=== PATIENT | female | born 1980 | race American Indian/Alaskan Native ===

== ENCOUNTER 2017-12-14 16:47 | Emergency (ER) | payer SELFPAY ==
[2017-12-14 16:57] VITALS: BP 123/78
[2017-12-14] MEDS ORDERED: MOTRIN PO ONE (20:10)
[2017-12-14] MEDS ORDERED: LIDOCAINE VISCOUS 2% PO ONE (20:10)
[2017-12-14] MEDS ORDERED: TESSALON PERLES PO ONE (20:10)
--- NOTE | 2017-12-14 20:16 | Emergency Department Report ---
- General Chief Complaint: Upper Respiratory Infection Stated Complaint: CANT BREATHE/BODY ACHE Time Seen by Provider: 12/14/17 20:06 Source: patient Mode of arrival: Ambulatory Limitations: No Limitations - History of Present Illness Initial Comments: This is a 37-year-old female nontoxic, well nourished in appearance, no acute signs of distress presents to the ED with c/o of productive cough, sore throat, body aches, rhinorrhea, nasal congestion x2 days. Patient describes productive cough as yellow mucus production. Patient denies any sick contact. Patient denies any recent travels, long car, recent hospital stays. Patient denies any calf pain or calf tenderness. Patient denies any chest pain, short of breath, fever, chills, nausea, vomiting, hemoptysis, numbness, tingling, headache or stiff neck. Patient denies any allergies or PMH. MD Complaint: cough, sore throat, rhinorrhea, nasal congestion -: days(s) (2) Severity: mild Severity scale (0 -10): 8 Quality: aching Consistency: constant Improves With: nothing Worsens With: nothing Associated Symptoms: rhinorrhea, nasal congestion, sore throat, cough. denies: fever, chills, myalgias, diaphoresis, headache, stiff neck, chest pain, shortness of breath, abdominal pain, nausea, vomiting, diarrhea, dysuria, rash, confusion, right sweats, weight loss, epistaxis, hoarseness, ear pain - Related Data Previous Rx's Medication Instructions Recorded Last Taken Type Promethazine [Phenergan] 25 mg PO Q6H PRN #20 tablet 05/11/14 Unknown Rx Sulfamethoxazole/Trimethoprim 1 each PO BID #14 tablet 05/11/14 Unknown Rx [Bactrim Ds] Ibuprofen [Motrin] 800 mg PO Q8H #30 tablet 07/01/14 Unknown Rx metFORMIN [Glucophage] 500 mg PO BID #60 tablet 12/23/14 Unknown Rx traMADol [Ultram 50 MG tab] 50 mg PO Q6HR PRN #14 tablet 12/23/14 Unknown Rx Azithromycin [Zithromax Z-ROCIO] 250 mg PO DAILY #6 tablet 12/14/17 Unknown Rx Benzonatate [Tessalon Perle] 100 mg PO Q6H PRN #20 capsule 12/14/17 Unknown Rx Ibuprofen [Motrin] 600 mg PO Q8H PRN #30 tablet 12/14/17 Unknown Rx Prednisone [predniSONE 10 mg 10 mg PO .TAPER #1 tab.ds.pk 12/14/17 Unknown Rx (6-Day Pack, 21 Tabs)] Allergies Allergy/AdvReac Type Severity Reaction Status Date / Time No Known Allergies Allergy Verified 12/15/13 09:36 ED Review of Systems ROS: Stated complaint: CANT BREATHE/BODY ACHE Other details as noted in HPI Constitutional: denies: chills, fever Eyes: denies: eye pain, eye discharge, vision change ENT: denies: ear pain, throat pain Respiratory: cough. denies: shortness of breath, wheezing Cardiovascular: denies: chest pain, palpitations Endocrine: no symptoms reported Gastrointestinal: denies: abdominal pain, nausea, diarrhea Genitourinary: denies: urgency, dysuria, discharge Musculoskeletal: denies: back pain, joint swelling, arthralgia Skin: denies: rash, lesions Neurological: denies: headache, weakness, paresthesias Psychiatric: denies: anxiety, depression Hematological/Lymphatic: denies: easy bleeding, easy bruising ED Past Medical Hx - Past Medical History Previous Medical History?: Yes Hx Diabetes: Yes - Surgical History Past Surgical History?: Yes Additional Surgical History: tonsils removed, , Tubaligation - Social History Smoking Status: Current Every Day Smoker Substance Use Type: Alcohol, Marijuana, Non Opiate Pain, Prescribed, Other - Medications Home Medications: Home Medications Medication Instructions Recorded Confirmed Last Taken Type Promethazine [Phenergan] 25 mg PO Q6H PRN #20 tablet 05/11/14 Unknown Rx Sulfamethoxazole/Trimethoprim 1 each PO BID #14 tablet 05/11/14 Unknown Rx [Bactrim Ds] Ibuprofen [Motrin] 800 mg PO Q8H #30 tablet 07/01/14 Unknown Rx metFORMIN [Glucophage] 500 mg PO BID #60 tablet 12/23/14 Unknown Rx traMADol [Ultram 50 MG tab] 50 mg PO Q6HR PRN #14 tablet 12/23/14 Unknown Rx Azithromycin [Zithromax Z-ROCIO] 250 mg PO DAILY #6 tablet 12/14/17 Unknown Rx Benzonatate [Tessalon Perle] 100 mg PO Q6H PRN #20 capsule 12/14/17 Unknown Rx Ibuprofen [Motrin] 600 mg PO Q8H PRN #30 tablet 12/14/17 Unknown Rx Prednisone [predniSONE 10 mg 10 mg PO .TAPER #1 tab.ds.pk 12/14/17 Unknown Rx (6-Day Pack, 21 Tabs)] ED Physical Exam - General Limitations: No Limitations General appearance: alert, in no apparent distress - Head Head exam: Present: atraumatic, normocephalic - Eye Eye exam: Present: normal appearance Pupils: Present: normal accommodation - ENT ENT exam: Present: mucous membranes moist, TM's normal bilaterally, normal external ear exam - Expanded ENT Exam Expanded Ear exam: Present: normal external inspection Mouth exam: Present: normal external inspection, tongue normal. Absent: drooling, trismus, muffled voice, tongue elevation, laceration Teeth exam: Present: normal inspection Throat exam: Positive: tonsillar erythema, other (Uvula midline. No abscess or swelling noted. ). Negative: tonsillomegaly, tonsillar exudate, R peritonsillar mass, L peritonsillar mass - Neck Neck exam: Present: normal inspection, full ROM. Absent: tenderness, meningismus, lymphadenopathy, thyromegaly - Respiratory Respiratory exam: Present: normal lung sounds bilaterally. Absent: respiratory distress, wheezes, rales, rhonchi, stridor, chest wall tenderness, accessory muscle use, decreased breath sounds, prolonged expiratory - Cardiovascular Cardiovascular Exam: Present: regular rate, normal rhythm, normal heart sounds. Absent: irregular rhythm, systolic murmur, diastolic murmur, rubs, gallop - GI/Abdominal GI/Abdominal exam: Present: soft, normal bowel sounds. Absent: distended, tenderness, guarding, rebound, rigid, diminished bowel sounds - Rectal Rectal exam: Present: deferred - Extremities Exam Extremities exam: Present: normal inspection, full ROM, normal capillary refill - Back Exam Back exam: Present: normal inspection, full ROM - Neurological Exam Neurological exam: Present: alert, oriented X3, normal gait - Psychiatric Psychiatric exam: Present: normal affect, normal mood - Skin Skin exam: Present: warm, dry, intact, normal color. Absent: rash ED Course Vital Signs 12/14/17 16:52 Temperature 98.2 F Pulse Rate 106 H Respiratory 20 Rate Blood Pressure 123/78 O2 Sat by Pulse 99 Oximetry - Reevaluation(s) Reevaluation #1: 12/14/17 20:17 Patient is speaking in full sentences with no signs of distress noted. ED Medical Decision Making - Medical Decision Making This is a 37-year-old female that presents with upper respiratory infection. Patient is stable and was examined by me. Chest x-ray has been obtained and dictated by radiologist with normal exam. Patient is notified of x-ray results with no questions noted. Due to patient having symptoms of upper respiratory infection and worsening I will treat patient empirically with zpak. Negative strep and flu swabs. Patient was instructed to increase hydration, rest and take Motrin for fever episodes. Patient received motrin, lidocaine visous, and tesslone perrls in the ED. Vitals stable. Patient is nonfebrile and normal heart rate. Patient was orally hydrated and patient tolerated well known nausea or vomiting. Patient was instructed Follow-up with a primary care doctor in 3- 5 days or if symptoms worsen and continue return to emergency room as soon as possible. At time time of discharge, the patient does not seem toxic or ill in appearance. No acute signs of distress noted. Patient agrees to discharge treatment plan of care. No further questions noted by the patient. Critical care attestation.: If time is entered above; I have spent that time in minutes in the direct care of this critically ill patient, excluding procedure time. ED Disposition Clinical Impression: Upper respiratory infection Qualifiers: URI type: unspecified URI Qualified Code(s): J06.9 - Acute upper respiratory infection, unspecified Disposition: DC-01 TO HOME OR SELFCARE Is pt being admited?: No Does the pt Need Aspirin: No Condition: Stable Instructions: Upper Respiratory Infection (ED), Azithromycin (By mouth), Benzonatate (By mouth), Prednisone (By mouth) Additional Instructions: Follow-up with a primary care doctor in 3-5 days or if symptoms worsen and continue return to emergency room as soon as possible. Prescriptions: Azithromycin [Zithromax Z-ROCIO] 250 mg PO DAILY #6 tablet Benzonatate [Tessalon Perle] 100 mg PO Q6H PRN #20 capsule PRN Reason: Cough Ibuprofen [Motrin] 600 mg PO Q8H PRN #30 tablet PRN Reason: Pain Prednisone [predniSONE 10 mg (6-Day Pack, 21 Tabs)] 10 mg PO .TAPER #1 tab.ds.pk Referrals: PRIMARY CARE, [Primary Care Provider] - 3-5 Days CROW HICKS MD [Staff Physician] - 3-5 Days [facility] [Outside] - 3-5 Days [facility] [Outside] - 3-5 Days Forms: Work/School Release Form(ED)
--- NOTE | 2017-12-14 22:13 | XRay Report ---
FINAL REPORT EXAM: XR CHEST ROUTINE 2V HISTORY: cough TECHNIQUE: Two view chest PA and lateral PRIORS: None. FINDINGS: Cardiac and mediastinal contours are unremarkable. No focal pulmonary infiltrate is identified. No pleural fluid collection seen. Pulmonary vasculature is unremarkable. IMPRESSION: Negative two-view chest
== END 2017-12-14 22:29 | disposition home or self-care (01) ==
LOC: ED 16:47
DX: J06.9 Acute upper respiratory infection, unspecified (principal); E11.9 Type 2 diabetes mellitus without complications; Z98.51 Tubal ligation status; F17.200 Nicotine dependence, unspecified, uncomplicated
CPT/HCPCS: 71046; 87116; 87400; 87430; 99283

== ENCOUNTER 2020-10-07 14:53 | Emergency (ER) | payer MEDICAID ==
[2020-10-07 15:15] VITALS: BP 127/86
--- NOTE | 2020-10-07 15:51 | XRay Report ---
RIGHT ANKLE 3 VIEWS INDICATION: ankle injury. COMPARISON: None. IMPRESSION: A nondisplaced oblique fracture is identified in the distal fibula just above the ankle joint. The distal tibia and talar dome are intact. Mild osteoarthritic changes are identified at the ankle. Small plantar spur. Moderate diffuse soft tissue swelling. Signer Name: Nahum Gale Jr, MD Signed: 10/07/2020 3:46 PM Workstation Name: [id number]
[2020-10-07] MEDS ORDERED: HYDROcodone/ACETAMINOPHEN 5-325 MG TAB PO ONE (17:39)
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
== END 2020-10-07 20:35 | disposition home or self-care (01) ==
LOC: ED 14:53
DX: S93.04XA Dislocation of right ankle joint, initial encounter (principal); E11.9 Type 2 diabetes mellitus without complications; F17.200 Nicotine dependence, unspecified, uncomplicated; Z98.51 Tubal ligation status; Z98.890 Other specified postprocedural states; Z79.899 Other long term (current) drug therapy; W50.2XXA Accidental twist by another person, initial encounter; Y93.89 Activity, other specified; Y92.89 Other specified places as the place of occurrence of the external cause; Y99.8 Other external cause status
CPT/HCPCS: 99283